=== PATIENT | male | born 1950 | race Caucasian/White ===

== ENCOUNTER 2020-02-07 06:45 | Day surgery (SDC) | payer OTHER ==
[~2020-02-07] VITALS: Ht 185.4 cm; Wt 127.0 kg
[2020-02-07] MEDS ORDERED: TOPROL XL50 MG PO (07:06)
[2020-02-07] MEDS ORDERED: AMLODIPINE BESYL5 MG PO (07:07)
[2020-02-07] MEDS ORDERED: PRAVASTATIN SOD40 MG PO (07:07)
[2020-02-07] MEDS ORDERED: SYNTHROID112 MCG PO (07:08)
--- NOTE | 2020-02-07 07:10 | NUR ---
PT IS A POOR HISTORIAN AND CANNOT CONFIRM ALL OF HIS MEDICATIONS BUT HE IS "PRETTY SURE" THE LIST IS CORRECT.
[2020-02-07] MEDS ORDERED: ASPIRIN81 MG PO (07:35)
--- NOTE | 2020-02-07 08:56 | NUR ---
REQUESTED HELP FROM ANESTHEIA PROVIDER AT 0830. AFTER ANESTHESIA INTERVIEWED PT AND ORDERED AN EKG AND LABS, CHANGED MIND AND DECIDED TO DO THE CASE WITHOUT ANESTHEIA SUPPORT. EKG CANCELLED BY
--- NOTE | 2020-02-07 09:53 | NUR ---
02/07/20 0953 Sheets,Beth 0943 PT ARRIVED TO PACU, PT WAKE TO VERBAL STIMULI AND DENIES PAIN. PT FALLS BACK TO SLEEP. VSS. 0950 PLAN OFC ARE DISCUSSED, AND PT ENCOURAGED TO DEEP BREATHE OFF AND ON. PT EDUCATION GIVEN ON PASSING GAS.
--- NOTE | 2020-02-08 08:40 | OR ---
[facility] [address], [place] [address] Signed DATE OF OPERATION: 02/07/2020 SURGEON: Rocky Lee MD PREOPERATIVE DIAGNOSES: 1. Positive Cologuard test. 2. Normal colonoscopy in 2006. 3. Episodic constipation, rectal bleeding. POSTOPERATIVE DIAGNOSES: 1. Two small polyps of colon (left transverse and sigmoid). 2. Sigmoid diverticulosis. PROCEDURES: Total colonoscopy to cecum with intubation of ileum and cold morcellation polypectomy x2. ANESTHESIA: Intravenous sedation, fentanyl 150 mcg and Versed 7 mg. INDICATIONS: This 69-year-old white man, is a patient of Dr. Phillips in [place] at the [facility]. He is known to me from the past having undergone colonoscopy in 2006. He recently underwent a Cologuard test. He has had constipation and some rectal bleeding. He has no family history of colon cancer. On the basis of the positive Cologuard test, he is recommended to have a non-routine colonoscopy in the COVID-19 era. He understands the risks of bleeding, infection, and perforation related to colonoscopy and wished to proceed. FINDINGS: The prep was good. Complete colonoscopy was undertaken of the cecum and intubation. The ileum was accomplished as well. A very thorough colonoscopy was undertaken so as to avoid missing any lesions that may have been identified by the Cologuard test. There were two small polyps, both excised, one in the left transverse colon, the other in the sigmoid. There were very small, but did have characteristics of adenoma based on narrow band imaging. There were diverticula of the sigmoid. There were internal hemorrhoids based on retroflexed view as well. DESCRIPTION OF PROCEDURE: The patient was brought to the endoscopy suite, placed in lateral decubitus position, given intravenous sedation to a point of slurred speech and nystagmus with full Electronically Signed By: ROCKY LEE MD 02/08/20 0840 PATIENT NAME: SEBAS CONN OPERATIVE REPORT DATE OF : 46 REPORT #: [id number] PHYSICIAN: ROCKY LEE MD PCP: FROY PHILLIPS MD REPORT IS CONFIDENTIAL AND NOT TO BE RELEASED WITHOUT AUTHORIZATION [facility] [address], [place] [address] Signed cardiopulmonary monitoring. Digital rectal examination was normal. An Olympus video colonoscope was passed into the rectum and manipulated throughout the colon, ultimately intubating the cecum itself. The ileocecal valve and appendiceal orifice were normal. Various manipulations, the ileum was able to be intubated and the ileum appeared entirely normal. Scope was withdrawn to the cecum, where the scope was then withdrawn. Upon withdrawal of the scope into the right transverse colon, there was a very small polyp. Neuro band imaging confirmed likely adenomatous change, this was excised with cold morcellation technique. The scope was further withdrawn, and there were no other findings until the sigmoid where diverticula were noted. In the sigmoid, also was a very small polyp, likely an adenoma, this was excised as well. The scope was further withdrawn. Retroflexed view of the rectum showed internal hemorrhoidal changes, but no sign of other abnormality. Care was taken to be thorough and complete with copious amounts of irrigation, so as to not miss any mucosal lesions. The two small polyps were small enough that I am somewhat surprised the Cologuard was positive. PLAN: He will return to the ongoing care of Dr. Phillips. I would recommend repeat colonoscopy in 5 years or sooner if clinically indicated. I would recommend to maintain a high-fiber diet based on the diverticulosis and internal hemorrhoids. MD MAXIM Carrington/SEBASTIÁNL /[id number] cc: Froy Phillips MD Copies: FROY PHILLIPS MD ~ Electronically Signed By: ROCKY LEE MD 02/08/20 0840 PATIENT NAME: SEBAS CONN OPERATIVE REPORT DATE OF : 46 REPORT #: [id number] PHYSICIAN: ROCKY LEE MD PCP: FROY PHILLIPS MD REPORT IS CONFIDENTIAL AND NOT TO BE RELEASED WITHOUT AUTHORIZATION
--- NOTE | 2020-02-08 10:19 | PATH ---
[facility] [address] [facility] [place], [place] [address] Signed SPECIMEN(S): A TRANSVERSE, LEFT SPECIMEN(S): B COLON POLYP AT 60 CM SPECIMEN SOURCE: A. TRANSVERSE, LEFT B. COLON POLYP AT 60 CM CLINICAL HISTORY: Positive Cologuard test. MICROSCOPIC DESCRIPTION: Histologic sections of all submitted blocks are examined by light microscopy. These findings, together with the gross examination, support the pathologic diagnosis. FINAL PATHOLOGIC DIAGNOSIS: A. Colon, left transverse, biopsy: - Fragments of colonic mucosa with mucosal lymphoid aggregate(s). - Negative for dysplasia or malignancy. B. Colon, polyp at 60 cm, polypectomy: - Tubular adenoma. - Negative for high-grade dysplasia or malignancy. NAL:cml:C2NR GROSS DESCRIPTION: Two specimens are received in two containers, labeled "ME." A. The specimen, labeled "ME, left transverse," is received in formalin and consists of four arrington soft tissue fragments that measure 0.3 cm in greatest dimension. The specimen is entirely submitted in cassette (A1). B. The specimen, labeled "ME, 2," and designated on the requisition "colon polyp at 60 cm," is received in formalin and consists of two arrington soft tissue fragments that measure 0.4 cm in greatest dimension. The specimen is entirely submitted in cassette (B1). AT (under the direct supervision of a pathologist) The Gross Description was prepared using a voice recognition system. The report was reviewed for accuracy; however, sound-alike word errors, addition and/or deletions may occur. If there is any question about this report, please contact Client Services. PERFORMING LABORATORY: The technical component was performed by [employer] Bhargavi Beck, PATIENT NAME: SEBAS CONN PATHOLOGY DATE OF : 46 REPORT #: [id number] PHYSICIAN: EDYTA PATHOLOGY PCP: FROY INGRAM MD REPORT IS CONFIDENTIAL AND NOT TO BE RELEASED WITHOUT AUTHORIZATION [facility] [address] [place], [place] [address] [place] [address] (Division Chief: Ladan Blanco MD; CLIA# [id number]). Professional interpretation was performed by [facility], [address] [address] (CLIA# [id number]). Diagnostician: Kay Aburto MD Pathologist Electronically Signed 02/08/2020 Copies: ~ PATIENT NAME: SEBAS CONN PATHOLOGY DATE OF : 46 REPORT #: [id number] PHYSICIAN: EDYTA PATHOLOGY PCP: FROY INGRAM MD REPORT IS CONFIDENTIAL AND NOT TO BE RELEASED WITHOUT AUTHORIZATION
== END 2020-02-07 10:28 | disposition home or self-care (01) ==
LOC: OPS 06:45 → DS 06:45 → OPS 08:30 → DS 08:30 → OPS 10:28
PROVIDERS: Surgery
PROC: 0DBL8ZZ Excision of Transverse Colon, Via Natural or Artificial Opening Endoscopic (ICD-10-PCS; 2020-02-07)
PROC: 0DBN8ZZ Excision of Sigmoid Colon, Via Natural or Artificial Opening Endoscopic (ICD-10-PCS; principal; 2020-02-07 08:30)
DX: D12.5 Benign neoplasm of sigmoid colon (principal); K63.5 Polyp of colon; K64.8 Other hemorrhoids; K57.31 Diverticulosis of large intestine without perforation or abscess with bleeding; I25.2 Old myocardial infarction; E03.9 Hypothyroidism, unspecified; K76.9 Liver disease, unspecified; B15.9 Hepatitis A without hepatic coma; R42 Dizziness and giddiness; Z87.828 Personal history of other (healed) physical injury and trauma; Z88.5 Allergy status to narcotic agent; Z79.899 Other long term (current) drug therapy
CPT/HCPCS: J2250; J3010; J7121